=== PATIENT | female | born 1995 ===

== ENCOUNTER 2016-11-27 23:57 | Emergency (ER) | payer SELFPAY | END 2016-11-28 02:00 | disposition home or self-care (01) | LOC: H.EROB2 23:57 | DX: O47.03 False labor before 37 completed weeks of gestation, third trimester (principal); Z3A.29 29 weeks gestation of pregnancy ==

== ENCOUNTER 2017-02-08 03:28 | Emergency (ER) | payer SELFPAY ==
--- NOTE | 2017-02-08 10:38 | OBHP ---
Datetime: 02/08/2017 04:16 IP Adm Impression: Term, intrauterine IP Admit Plan: Observation/Evaluation Admit Comment, IP Provider: 21 y/o @ 40.1 weeks IUP presents w/ decreaed movement. The p atient reports that the fetus was not as active from 01:45-03:00. The patient reports tension headac he and mild nausea but no vomiting. The patient report taking PNVs and denies VB, LOF, CTXs, dysuria , and fevers. Clinic: [facility] PMH: none PSH: appendectomy 2011 OBHx: x1 2014 SOC: denies smoking, alcohol, and drugs ABO-Rh: O+ antibody: neg GBS: neg HIV: neg RPR: neg HBsAg: neg rubella: immune GC/C: neg PPD: neg TDAP: 01/16/2017 O: CV: RRR Resp: CTA bl Pelvic: 2 cm, 50%, -3, intact membranes A: 21 y/o @ 40.1 weeks IUP presents w/ decreased movement P: observe and evaluate continuous monitoring PO hydration re-evaluate in 2 hours Murtaza Norris MD [employer]munition [employer] I Laborer OBH ADDENDUM @ 10:00 Pt states she feels back pain rated as 10/10. She states prior preg was assoc with rapid labor. S he had SROM with subsequent labor pain in abd and back. o: repeat exam i: latent phase labor p: labor precautions kick counts Pelvic Type - PN: Adequate Extremities - PN: Normal Abdomen - PN: Normal Back - PN: Not Done Breast - PN: Not Done Lungs - PN: Normal Heart - PN: Normal Thyroid - PN: Not Done Neurologic - PN: Normal HEENT - PN: Normal General - PN: Normal FHR - Baseline A Provider: 136 Membranes, Provider: Intact Comments, ACOG Physical Exam: 2cm, 50%, -3, intact membranes IP Hx Assessment: The History has been Reviewed and is Current EGA AdmitDate IP: 40.1 Vital Signs Provider: Reviewed; Within Normal Limits IP Chief Complaint: Decreased movement NICHD Variability Prov Fetus A: Moderate 6-25bpm NICHD Accel Fetus A IP Provider: 15X15 FHR Category Provider Fetus A: Category I NICHD Decel Fetus A IP Provider: None Dilatation, Provider: 2 Effacement, Provider: 50 Station, Provider: -3 Genitourinary Exam: Normal DTRs - PN: Not Done
== END 2017-02-08 10:15 | disposition home or self-care (01) ==
LOC: H.EROB2 03:28
DX: O47.1 False labor at or after 37 completed weeks of gestation (principal); Z3A.40 40 weeks gestation of pregnancy; O48.0 Post-term pregnancy

== ENCOUNTER 2017-02-13 19:23 | Inpatient (IN) | payer MEDICAID, SELFPAY ==
[2017-02-13 20:09] VITALS: BMI 28.0
[2017-02-13 20:55] LABS: BASO # 0.1 K/uL (0.0-0.2); BASO % 1.2 % (0.0-2.0); EOS # 0.2 K/uL (0.0-0.7); EOS % 2.5 % (0.0-4.0); HEMOGLOBIN 11.3 g/dL (12.0-16.0); LYMPH # 2.8 K/uL (1.0-4.3); LYMPH % 40.6 % (20.0-40.0); MEAN CELL VOLUME 79.1 fl (81.0-99.0); MEAN CORPUSCULAR HEMOGLOBIN 26.3 pg (27.0-31.0); MEAN CORPUSCULAR HGB CONC 33.2 g/dL (33.0-37.0); MEAN PLATELET VOLUME 10.2 fl (7.2-11.7); MONO # 0.9 K/uL (0.0-0.8); MONO % 13.1 % (0.0-10.0); NEUT # 2.9 K/uL (1.8-7.0); NEUT % 42.6 % (50.0-75.0); NRBC % 0.2 % (0.0-0.0); RBC 4.3 Mil/uL (3.80-5.20); RED CELL DISTRIBUTION WIDTH 15.1 % (11.5-14.5); WHITE BLOOD COUNT 6.8 K/uL (4.8-10.8)
[2017-02-13 21:24] VITALS: BP 108/70; PULSE 93; RESP 18; TEMP 98.2; O2SAT 99
[2017-02-13] MEDS: Lactated Ringer's 1,000 ML IV SCH ×2 (22:45→23:45)
[2017-02-14] MEDS: Lactated Ringer's 1,000 ML IV SCH ×3 (00:45→12:11)
[2017-02-14] MEDS ORDERED: Fentanyl/Bupivacaine HCl 250 ML EPI ONE ×2 (01:27→19:24)
--- NOTE | 2017-02-14 07:40 | OBADHP ---
Datetime: 02/14/2017 05:40 FHR - Baseline A Provider: 141 Membranes, Provider: Intact Contraction Comments Provider: Q2-3M Vital Signs Provider: Reviewed NICHD Variability Prov Fetus A: Moderate 6-25bpm FHR Category Provider Fetus A: Category I NICHD Decel Fetus A IP Provider: None Dilatation, Provider: 3-4 Effacement, Provider: 80 Station, Provider: -2 Datetime: 02/13/2017 20:23 Admit Comment, IP Provider: 21 y/o @ 40.1 weeks IUP presents for scheduled induction of labor d ue to post dates. The patient reports mild tension headache and mild nausea but no vomiting. The p atient report taking PNVs and denies VB, LOF, CTXs, dysuria, and fevers. Clinic: [facility] PMH: none PSH: appendectomy 2011 OBHx: x1 2014 SOC: denies smoking, alcohol, and drugs ABO-Rh: O+ antibody: neg GBS: neg HIV: neg RPR: neg HBsAg: neg rubella: immune GC/C: neg PPD: neg TDAP: 01/16/2017 O: CV: RRR Resp: CTA bl Pelvic: 1 cm, 50%, -3 A: 21 y/o @ 40.6 IUP presnts for IOL due to post-dates P: Admit to unit initiate labor protocol initiate induction protocol continuous monitoring IV LR bolus IV LR @ 125 mL/hr CBC w/ diff ordered type and screen ordered cervidil ordered anesthesia consult for epidural ordered anticipate vaginal delivery Murtaza Norris MD Computer Architect Addendum: I saw and examined patient presentation. Agreed with above plan. Admit patient for postdates induc tion of labor. Maternal well-being and well-being reassuring at this time. [place] Pelvic Type - PN: Adequate Extremities - PN: Not Done Abdomen - PN: Normal Back - PN: Not Done Breast - PN: Normal Lungs - PN: Normal Heart - PN: Normal Thyroid - PN: Not Done Neurologic - PN: Normal HEENT - PN: Normal General - PN: Normal IP Hx Assessment: The History has been Reviewed and is Current IP Chief Complaint: Scheduled induction of labor NICHD Accel Fetus A IP Provider: 15X15 Genitourinary Exam: Normal DTRs - PN: Not Done EGA AdmitDate IP: 40.6 IP Adm Impression: Term, intrauterine IP Admit Plan: Admit to unit; Initiate labor protocol; Initiate labor induction protocol Datetime: 02/08/2017 04:16 Comments, ACOG Physical Exam: 2cm, 50%, -3, intact membranes
[2017-02-14] MEDS ORDERED: Oxytocin 30 units/LR 500ML 30 U/500 ML BAG IV ONE ×2 (09:31→21:49)
[2017-02-14] MEDS ORDERED: Lidocaine 1% Inj (20ml) ONE (21:30)
[2017-02-14] MEDS ORDERED: Benzocaine/Menthol SPRAY TOP PRN ×2 (22:11→23:37)
--- NOTE | 2017-02-14 22:25 | OBDS ---
DELIVERY PERSONNEL Delivery Doctor: Mony Rankin MD Network Systems Engineer: Areli Burgos RN Resident: Dr. Ana Lilia Garvey MATERNAL INFORMATION Delivery Anesthesia: Epidural Medications in Delivery: Oxytocin 30 units in 500 mLl Estimated Blood Loss (ml): 200 Placenta Cultured: No Maternal Complications: None Provider Comments: Pt progressed to complete and pushed to deliver a viable male infant at 21:44. Ap gars 9 and 9. Wt 9#8, 4315gms. Mouth and nares bulb-suctioned at perineum. Shoulders delivered fol lowed by the rest of the body. Cord clamped and cut. placed on mother's abdomen. Cord blood collected. Placenta delivered spontaneously intact w/ 3vc at 21:49. Small 1st degree tear repaired w/ 3-0 vicryl rapide. Left hemostatic periurethral abrasion noted. Baby delivered by Chio weiss, PGY-2. LABOR SUMMARY EDC: 02/07/2017 00:00 No. Babies in Womb: 1 LABOR INFORMATION Cervical Ripening Agents: Cervidil (Annotations: Cervidil 10mg inserted intravaginally by Dr. Gomez te Resident ) Group B Beta Strep: Negative MEMBRANES Membranes Rupture Method: Artificial Rupture of Membranes: 02/14/2017 17:30 Amniotic Fluid Color: Light Meconium (Annotations: very light mec) Amniotic Fluid Amount: Scant Amniotic Fluid Odor: Normal PRESENTATION/POSITION BABY A Presentation: Cephalic
[2017-02-15 07:30] LABS: MEAN CELL VOLUME 78.9 fl (81.0-99.0); MEAN CORPUSCULAR HEMOGLOBIN 25.8 pg (27.0-31.0); MEAN CORPUSCULAR HGB CONC 32.7 g/dL (33.0-37.0); RBC 3.89 Mil/uL (3.80-5.20); RED CELL DISTRIBUTION WIDTH 15.4 % (11.5-14.5)
--- NOTE | 2017-02-15 09:29 | OBPPN ---
Datetime: 02/15/2017 05:43 PP Pain Prov: Within normal limits PP Nausea Prov: Denies PP Flatus Prov: Yes PP BM Prov: No PP Breasts Prov: Normal PP Heart Prov: Normal PP Lungs Prov: Normal PP Abdomen/Uterus Prov: Normal PP Lochia Prov: Normal PP Vulva/Perineum Prov: Not Done PP CVA Tenderness Prov: Not Done PP Extremities Prov: Normal PP C/S Incision Prov: Not Applicable PP Progress Prov: Normal PP Impression Prov: Normal progression PP Plan Prov: Continue present management PP Progress Note Prov: 21 y/o now seen and examined at bedside. Patient delivered overnight. Patient reports mild pelvic pain controlled w/ pain meds. OOB/Ambulating w/o dizziness. Breast/donya le feeding w/o difficulty. Tolerating PO diet well. Lochia is less than menses in volume. Voiding freely w/ no blood noted. Reports no bowel movement. Denies fevers, chills, n/v/d, CP/SOB, lighthea dedness and calf pain. PE: GEN: A_O, resting comfortably in bed, NAD Lung: CTA B/L, no wheezing, rhonchi, or rales CVS: S1, S2 wnl, RRR Abd: +BS, firm fundus below umbilicus. EXT: no edema, negative Eron's, calves non-tender Assessment: 21 y/o now s/p on 02/14/2017 @ 21:44 tolerating pain w/ medication, tolerati ng oral intake, adequate urine output, doing well on PPD1. Plan: Percocet 5/325 mg 1-2 tabs PO Q6h prn for mod/severe pain. Ibuprofen 600 mg 1 tab Q6h PO pr n for mild pain. Encourage breast feeding and ambulation. Murtaza Norris M.D. System Development Manager PGY-1 OBH ADDENDUM PT seen _ examined by me. Agree with above assessment _ plan. IP PP Procedures: None Vital Signs Provider PP: Reviewed; Within Normal Limits Vital Signs Provider Details PP: hgb 10
--- NOTE | 2017-02-16 09:12 | OBPPN ---
Datetime: 02/16/2017 08:08 PP Pain Prov: Within normal limits PP Nausea Prov: Denies PP Flatus Prov: Yes PP BM Prov: Yes PP Heart Prov: Normal PP Lungs Prov: Normal PP Lochia Prov: Normal PP C/S Incision Prov: Not Applicable PP Impression Prov: Normal progression PP Plan Prov: Continue present management PP Progress Note Prov: PPD2 S:Patient feels well, tolerating regular diet. Pain is minimal and is controlled. Pt had BM. Lochia less than menses. O:as above A/P: PPD2 s/p -Pain control -encouraged ambulation -stable for discharge home Jared Vazquez PGY1 OB Hospitalist Addendum: PPD 2 s/p , doing well Discharge home today (ES) Vital Signs Provider PP: Reviewed
== END 2017-02-16 14:25 | disposition home or self-care (01) | DRG 373 ==
LOC: H.EROB2 19:23 → H.L&D 20:11 → H.OB/GYN 02-14 23:45
PROVIDERS: ADMIT Obstetrics & Gynecology; ATTEND Obstetrics & Gynecology
PROC: 10E0XZZ Delivery of Products of Conception, External Approach (ICD-10-PCS; principal; 2017-02-13)
PROC: 0HQ9XZZ Repair Perineum Skin, External Approach (ICD-10-PCS; 2017-02-13)
PROC: 4A1HXCZ Monitoring of Products of Conception, Cardiac Rate, External Approach (ICD-10-PCS; 2017-02-13)
DX: O48.0 Post-term pregnancy (principal); O99.354 Diseases of the nervous system complicating childbirth; Z37.0 Single live birth; G44.209 Tension-type headache, unspecified, not intractable; O70.0 First degree perineal laceration during delivery; Z3A.40 40 weeks gestation of pregnancy

== ENCOUNTER 2017-04-22 23:55 | Emergency (ER) | payer SELFPAY ==
[2017-04-22 23:55] VITALS: BMI 28.0
[2017-04-23 00:07] VITALS: PULSE 81; RESP 18; TEMP 98.2; O2SAT 99
--- NOTE | 2017-04-23 01:11 | ED PDOC ---
HPI: General Adult Time Seen by Provider: 04/23/17 00:59 Chief Complaint (Nursing): Headache Chief Complaint (Provider): left ear pain, headache History Per: Patient History/Exam Limitations: no limitations Onset/Duration Of Symptoms: Hrs (1) Current Symptoms Are (Timing): Still Present Additional History Per: Patient Additional Complaint(s): 21 y/o female presents with left ear pain x 1 hour. Associated generalized headache. Denies fever, drainage from ear, cough, congestion, nausea/vomiting. No medication taken for pain relief thus far. Past Medical History Reviewed: Historical Data, Nursing Documentation, Vital Signs Vital Signs: Last Vital Signs Temp 98.2 F 04/23/17 00:05 Pulse 81 04/23/17 00:05 Resp 18 04/23/17 00:05 BP 126/81 04/23/17 00:05 Pulse Ox 99 04/23/17 01:12 - Medical History PMH: No Chronic Diseases - Surgical History Surgical History: No Surg Hx - Family History Family History: States: No Known Family Hx - Living Arrangements Living Arrangements: With Family - Home Medications Home Medications: Ambulatory Orders Medication Instructions Recorded Multivit/Folic Acid/I 1 tab PO DAILY 02/13/17 [ Plus] Amoxicillin [Amoxil 500 mg Cap] 500 mg PO BID #13 cap 04/23/17 Ibuprofen [Motrin Tab] 1 tab PO Q6 PRN #20 tab 04/23/17 - Allergies Allergies/Adverse Reactions: Allergies Allergy/AdvReac Type Severity Reaction Status Date / Time No Known Allergies Allergy Verified 02/13/17 20:09 Review of Systems ROS Statement: Except As Marked, All Systems Reviewed And Found Negative ENT: Positive for: Ear Pain Neurological: Positive for: Headache Physical Exam - Reviewed Nursing Documentation Reviewed: Yes Vital Signs Reviewed: Yes - Physical Exam Appears: Positive for: Well, Non-toxic, No Acute Distress Head Exam: Positive for: ATRAUMATIC, NORMAL INSPECTION, NORMOCEPHALIC Skin: Positive for: Normal Color ENT: Positive for: TM Is/Are (Left TM bulging, slightly erythematous. Right TM partially obscured by cerumen. EACs clear b/l. No mastoid swelling/erythema/ tenderness b/l) Cardiovascular/Chest: Positive for: Regular Rate, Rhythm Respiratory: Positive for: Normal Breath Sounds Neurologic/Psych: Positive for: Alert, Oriented - ECG O2 Sat by Pulse Oximetry: 99 - Progress ED Course And Treament: Ibuprofen PO, Amoxicillin PO Patient educated on findings, discharged with rx ibuprofen, amoxicillin. Advised follow up PMD 2-3 days. Return to ED for worsening/concerning symptoms. Disposition - Clinical Impression Clinical Impression: Otitis media - Patient ED Disposition Is Patient to be Admitted: No Counseled Patient/Family Regarding: Diagnosis, Need For Followup, Rx Given - Disposition Referrals: [facility] [Outside] Disposition: Routine/Home Disposition Time: 01:11 Condition: IMPROVED Prescriptions: Amoxicillin [Amoxil 500 mg Cap] 500 mg PO BID #13 cap Ibuprofen [Motrin Tab] 1 tab PO Q6 PRN #20 tab PRN Reason: Pain, Moderate (4-7) Instructions: Otitis Media (ED) Print Language: CENTRAL AFRICAN
[2017-04-23 02:18] VITALS: BP 122/78
== END 2017-04-23 02:20 | disposition home or self-care (01) ==
LOC: H.ER 23:55
DX: H66.90 Otitis media, unspecified, unspecified ear (principal)

== ENCOUNTER 2017-10-08 15:29 | Emergency (ER) | payer OTHER, SELFPAY ==
[2017-10-08 15:29] VITALS: BMI 28.0
[2017-10-08] MEDS ORDERED: guaiFENesin 200 mg/10 ml Syrup UD PO STA (17:29)
[2017-10-08] MEDS ORDERED: guaiFENesin 100 mg/5 ml Syrup UD ONE (18:08)
--- NOTE | 2017-10-08 18:30 | ED PDOC ---
HPI: General Adult Time Seen by Provider: 10/08/17 16:48 Chief Complaint (Nursing): Flu-like Symptoms Chief Complaint (Provider): Flu-like Symptoms History Per: Patient, Orientor (#[id number]) Onset/Duration Of Symptoms: Days (x 3) Have you had recent travel within the past 21 days to any of the following countries: [place], [place], [place] or [place]?: No Current Symptoms Are (Timing): Still Present Additional Complaint(s): Patient is a 22 year old female who presents to the emergency department complaining of cough, body aches, and fever for the past 3 days. Unknown tmax. ( +) sick contact (son tested positive for flu). Patient reports she took Motrin at 14:00 today. Denies diarrhea, rash, urinary symptoms, travel, abdominal pain , vomiting, nausea, headache, stiff neck, or chest pain. LMP 16 months ago ( gave 7 months ago) is currently breast feeding. PMD: None Past Medical History Reviewed: Historical Data, Nursing Documentation, Vital Signs Vital Signs: Last Vital Signs Temp 98.6 F 10/08/17 20:25 Pulse 97 H 10/08/17 20:25 Resp 15 10/08/17 20:25 BP 114/67 10/08/17 20:25 Pulse Ox 100 10/08/17 20:25 - Medical History PMH: No Chronic Diseases - Surgical History Surgical History: Appendectomy - Family History Family History: States: Unknown Family Hx - Living Arrangements Living Arrangements: With Family - Social History Current smoker - smoking cessation education provided: No Alcohol: None Drugs: Denies - Home Medications Home Medications: Ambulatory Orders Medication Instructions Recorded Multivit/Folic Acid/I 1 tab PO DAILY 02/13/17 [ Plus] Amoxicillin [Amoxil 500 mg Cap] 500 mg PO BID #13 cap 04/23/17 Ibuprofen [Motrin Tab] 1 tab PO Q6 PRN #20 tab 04/23/17 Famotidine [Pepcid] 20 mg PO DAILY #20 tab 06/27/17 Acetaminophen [Acetaminophen 8 650 mg PO Q8 PRN #21 tablet.er 10/08/17 Hour] Promethazine DM [Phenergan DM 5 ml PO Q6 PRN #200 ml 10/08/17 Syrup] - Allergies Allergies/Adverse Reactions: Allergies Allergy/AdvReac Type Severity Reaction Status Date / Time No Known Allergies Allergy Verified 10/08/17 16:16 Review of Systems ROS Statement: Except As Marked, All Systems Reviewed And Found Negative Constitutional: Positive for: Fever, Other (Body aches) Cardiovascular: Negative for: Chest Pain Respiratory: Positive for: Cough. Negative for: Shortness of Breath Gastrointestinal: Negative for: Nausea, Vomiting, Diarrhea Genitourinary Female: Negative for: Dysuria, Hematuria Musculoskeletal: Negative for: Neck Pain Skin: Negative for: Rash Neurological: Negative for: Headache Physical Exam - Reviewed Nursing Documentation Reviewed: Yes Vital Signs Reviewed: Yes - Physical Exam Appears: Positive for: Well, Non-toxic, No Acute Distress Head Exam: Positive for: ATRAUMATIC, NORMOCEPHALIC Skin: Positive for: Normal Color, Warm, Dry. Negative for: Diaphoresis, Rash Eye Exam: Positive for: Normal appearance, EOMI, PERRL. Negative for: Conjunctival injection ENT: Positive for: Pharynx Is (clear, uvula midline), TM Is/Are ((-) erythema (- ) bulging). Negative for: Pharyngeal Erythema Neck: Positive for: Painless ROM, Supple Cardiovascular/Chest: Positive for: Regular Rate, Rhythm Respiratory: Positive for: Normal Breath Sounds. Negative for: Decreased Breath Sounds, Accessory Muscle Use, Respiratory Distress Gastrointestinal/Abdominal: Positive for: Soft. Negative for: Tenderness, Mass , Distended, Guarding Extremity: Positive for: Normal ROM. Negative for: Deformity Neurologic/Psych: Positive for: Alert, Mood/Affect (appropriate for age) - ECG O2 Sat by Pulse Oximetry: 99 (RA) Pulse Ox Interpretation: Normal Medical Decision Making Medical Decision Making: Time: 17:29 Plan: - Robitussin 200 mg PO STAT - Tylenol 325mg tab Patient advised she was outside the treatment window for Tamiflu. On re-evaluation, patient reports improvement of symptoms, denies any chest, neck, or abdomen pain. On exam, patient remains AAOx3, in no acute distress. Lungs clear to auscultation, cardiac RRR, abdomen soft, non-tender, repeat neuro exam shows no focal findings. Based on history, exam and diagnostic results, plan will be for outpatient follow up. Patient instructed to follow-up with pmd / the clinic in 1-2 days without fail. Advised to take medication as prescribed. Return to the emergency room at any time for any new or worsening symptoms. Patient states he/she fully agrees with and understands discharge instructions. States that he/she agrees with the plan and disposition. Verbalized and repeated discharge instructions and plan. I have given the patient opportunity to ask any additional questions. Scribe Attestation: Documented by Lukasz Hwang, acting as a scribe for Beatriz Hurst PA-C Provider Scribe Attestation: All medical record entries made by the Scribe were at my direction and personally dictated by me. I have reviewed the chart and agree that the record accurately reflects my personal performance of the history, physical exam, medical decision making, and the department course for this patient. I have also personally directed, reviewed, and agree with the discharge instructions and disposition. Disposition - Clinical Impression Clinical Impression: Fever, Cough in adult patient, Influenza, Body aches - Patient ED Disposition Is Patient to be Admitted: No Counseled Patient/Family Regarding: Diagnosis, Need For Followup, Rx Given - Disposition Referrals: [facility] [Outside] Disposition: Routine/Home Disposition Time: 19:52 Condition: STABLE Prescriptions: Acetaminophen [Acetaminophen 8 Hour] 650 mg PO Q8 PRN #21 tablet.er PRN Reason: fever, pain Promethazine DM [Phenergan DM Syrup] 5 ml PO Q6 PRN #200 ml PRN Reason: Cough Instructions: Flu, Cough in Adults, Fever, Adult (DC) Forms: [employer] (Djiboutian) Print Language: CHILEAN - POA Present On Arrival: None
[2017-10-08 20:26] VITALS: BP 114/67; PULSE 97; RESP 15; TEMP 98.6
[2017-10-08 20:45] VITALS: O2SAT 99
== END 2017-10-08 20:27 | disposition home or self-care (01) ==
LOC: H.ER 15:29
DX: J11.1 Influenza due to unidentified influenza virus with other respiratory manifestations (principal)

== ENCOUNTER 2017-12-25 13:56 | Emergency (ER) | payer OTHER ==
[2017-12-25 13:57] VITALS: BMI 28.0
[2017-12-25] MEDS ORDERED: Sodium Chloride 0.9% 1,000 ML IV STA (14:42)
--- NOTE | 2017-12-25 14:51 | ED PDOC ---
HPI: Abdomen Time Seen by Provider: 12/25/17 14:00 Chief Complaint (Nursing): Abdominal Pain Chief Complaint (Provider): Lower abdomen pain History Per: Patient History/Exam Limitations: no limitations Onset/Duration Of Symptoms: Days (3) Outside of [place] travel?: No Current Symptoms Are (Timing): Still Present Location Of Pain/Discomfort: RLQ, Suprapubic Quality Of Discomfort: "Pain" Associated Symptoms: Nausea, Urinary Symptoms. denies: Fever, Chills, Vomiting , Back Pain Additional History Per: Patient Additional Complaint(s): 22yo female, no past medical history, presents to ED wit complaints of right lower abdominal pain for the past 3 days. She reports associated nausea and states she feels burning upon urination. She denies any fever, chills, vomiting , diarrhea, lower back pain, or hematuria. She states her LMP was on 11/27/17. Patient has no other medical complaints. Abnormal Vaginal Bleeding: No Last Menstral Period: 11/27/17 Past Medical History Reviewed: Historical Data, Nursing Documentation, Vital Signs Vital Signs: Last Vital Signs Temp 97.0 F L 12/25/17 13:59 Pulse 88 12/25/17 13:59 Resp 16 12/25/17 13:59 BP 117/82 12/25/17 13:59 Pulse Ox 97 12/25/17 17:50 - Medical History PMH: No Chronic Diseases - Surgical History Surgical History: Appendectomy - Family History Family History: States: Unknown Family Hx - Social History Current smoker - smoking cessation education provided: No Alcohol: None Drugs: Denies - Home Medications Home Medications: Ambulatory Orders Medication Instructions Recorded Multivit/Folic Acid/I 1 tab PO DAILY 02/13/17 [ Plus] Amoxicillin [Amoxil 500 mg Cap] 500 mg PO BID #13 cap 04/23/17 Ibuprofen [Motrin Tab] 1 tab PO Q6 PRN #20 tab 04/23/17 Famotidine [Pepcid] 20 mg PO DAILY #20 tab 06/27/17 Acetaminophen [Acetaminophen 8 650 mg PO Q8 PRN #21 tablet.er 10/08/17 Hour] Promethazine DM [Phenergan DM 5 ml PO Q6 PRN #200 ml 10/08/17 Syrup] Nitrofurantoin Macrocrystals 100 mg PO BID #14 cap 12/25/17 [Macrobid] - Allergies Allergies/Adverse Reactions: Allergies Allergy/AdvReac Type Severity Reaction Status Date / Time No Known Allergies Allergy Verified 12/25/17 13:59 Review of Systems ROS Statement: Except As Marked, All Systems Reviewed And Found Negative Constitutional: Negative for: Fever, Chills Gastrointestinal: Positive for: Nausea, Abdominal Pain. Negative for: Vomiting , Diarrhea Genitourinary Female: Positive for: Dysuria. Negative for: Hematuria, Vaginal Discharge, Vaginal Bleeding Musculoskeletal: Negative for: Back Pain Physical Exam - Reviewed Nursing Documentation Reviewed: Yes Vital Signs Reviewed: Yes - Physical Exam Appears: Positive for: Non-toxic, No Acute Distress Head Exam: Positive for: ATRAUMATIC, NORMAL INSPECTION, NORMOCEPHALIC Skin: Positive for: Normal Color, Warm Eye Exam: Positive for: Normal appearance Neck: Positive for: Normal, Supple Cardiovascular/Chest: Positive for: Regular Rate, Rhythm Respiratory: Positive for: Normal Breath Sounds Gastrointestinal/Abdominal: Positive for: Soft, Tenderness (mild right lower quadrant/pelvic tenderness) Back: Positive for: Normal Inspection. Negative for: L CVA Tenderness, R CVA Tenderness Extremity: Positive for: Normal ROM. Negative for: Deformity Neurologic/Psych: Positive for: Alert, Oriented - Laboratory Results Result Diagrams: 12/25/17 15:22 12/25/17 15:22 - ECG O2 Sat by Pulse Oximetry: 97 (RA) Pulse Ox Interpretation: Normal Medical Decision Making Medical Decision Making: Impression: Abdominal pain, r/o ovarian torsion, UTI Plan: -- US Pelvis/Transvaginal -- Urinalysis -- Labs -- Toradol 30mg IV -- IV Fluids -- Zofran 4mg PO Time: 1700 Labs and UA reviewed, indicates a UTI; patient informed of findings. US Pelvis/Transvaginal FINDINGS: UTERUS: Measures 4.3 x 4.9 x 8.5 cm. Normal in size and appearance. No fibroid or other mass lesion seen. ENDOMETRIUM: Measures 4.1 mm in diameter. 1.8 mm echogenic focus within the endometrial canal of uncertain etiology/ doubtful clinical significance. CERVIX: No cervical abnormality identified. RIGHT OVARY: Measures 2.4 x 3.4 x 3.4 cm. No solid mass. Normal flow. Multiple subcentimeter follicles. LEFT OVARY: Measures 2.4 x 3.6 x 3.3 cm. No solid mass. Normal flow. FREE FLUID: No significant free fluid noted. OTHER FINDINGS: None. IMPRESSION: No significant or acute findings to account for/ related to the clinical presentation. Additional benign and/or incidental findings described above. Patient is stable for discharge home; she is aware of US results and will be prescribed Macrobid and instructed to follow up with her PCP in 2-3 days. Patient is agreeable with plan. Scribe Attestation: Documented by Christina Gonsalves, acting as a scribe for Joshua Rahman MD Provider Scribe Attestation: All medical record entries made by the Scribe were at my direction and personally dictated by me. I have reviewed the chart and agree that the record accurately reflects my personal performance of the history, physical exam, medical decision making, and the department course for this patient. I have also personally directed, reviewed, and agree with the discharge instructions and disposition. Disposition - Clinical Impression Clinical Impression: UTI (urinary tract infection) - Patient ED Disposition Is Patient to be Admitted: No Counseled Patient/Family Regarding: Studies Performed, Diagnosis, Need For Followup, Rx Given - Disposition Referrals: [facility] [Outside] [facility] [Outside] [facility] [Outside] Disposition: Routine/Home Disposition Time: 16:35 Condition: IMPROVED Additional Instructions: follow up with your primary doctor in 1-2 days return to the ED with any worsening or concerning symptoms Prescriptions: Nitrofurantoin Macrocrystals [Macrobid] 100 mg PO BID #14 cap Instructions: Urinary Tract Infection, Adult (DC) Forms: [employer] (Lao) Print Language: [place]IZ[place]
[2017-12-25 15:30] LABS: BASO % 0.5 % (0.0-2.0); EOS # 0.2 K/uL (0.0-0.7); EOS % 3.9 % (0.0-4.0); HEMOGLOBIN 13.7 g/dL (12.0-16.0); LYMPH # 2.8 K/uL (1.0-4.3); LYMPH % 48.2 % (20.0-40.0); MEAN CORPUSCULAR HEMOGLOBIN 30.1 pg (27.0-31.0); MEAN CORPUSCULAR HGB CONC 34.6 g/dL (33.0-37.0); MEAN PLATELET VOLUME 8.3 fl (7.2-11.7); MONO # 0.5 K/uL (0.0-0.8); NEUT # 2.2 K/uL (1.8-7.0); NEUT % 38.4 % (50.0-75.0); RBC 4.55 Mil/uL (3.80-5.20); RED CELL DISTRIBUTION WIDTH 12.5 % (11.5-14.5); WHITE BLOOD COUNT 5.7 K/uL (4.8-10.8)
[2017-12-25 15:43] LABS: ALB/GLOB RATIO 1.4 (1.0-2.1); ALBUMIN 4.6 g/dL (3.5-5.0); ALT/SGPT 39 U/L (9-52); AST/SGOT 24 U/L (14-36); BLOOD UREA NITROGEN 13 mg/dl (7-17); CALCIUM 9.7 mg/dL (8.4-10.2); GFR AFRICAN-AMERICAN > 60; GFR NON-AFRICAN AMERICAN > 60
[2017-12-25 16:07] LABS: SQUAMOUS EPITHIAL 20 /hpf (0-5); URINE BACTERIA RARE (<OCC); URINE BILIRUBIN NEGATIVE (NEGATIVE); URINE BLOOD SMALL (NEGATIVE); URINE CLARITY CLOUDY (Clear); URINE COLOR YELLOW (YELLOW); URINE GLUCOSE (UA) NEG (Normal); URINE LEUKOCYTE ESTERASE MOD Leu/uL (Negative); URINE PROTEIN NEGATIVE (NEGATIVE); URINE UROBILINOGEN 0.2-1.0 mg/dL (0.2-1.0)
--- NOTE | 2017-12-25 16:31 | US ---
HISTORY: Nausea, right-sided pelvic pain. Menstrual status: LMP 12/22/2017. COMPARISON: None available. TECHNIQUE: Transabdominal, transvaginal. Real -time technique with 2D, duplex and color Doppler. FINDINGS: UTERUS: Measures 4.3 x 4.9 x 8.5 cm. Normal in size and appearance. No fibroid or other mass lesion seen. ENDOMETRIUM: Measures 4.1 mm in diameter. 1.8 mm echogenic focus within the endometrial canal of uncertain etiology/ doubtful clinical significance. CERVIX: No cervical abnormality identified. RIGHT OVARY: Measures 2.4 x 3.4 x 3.4 cm. No solid mass. Normal flow. Multiple subcentimeter follicles. LEFT OVARY: Measures 2.4 x 3.6 x 3.3 cm. No solid mass. Normal flow. FREE FLUID: No significant free fluid noted. OTHER FINDINGS: None. IMPRESSION: No significant or acute findings to account for/ related to the clinical presentation. Additional benign and/or incidental findings described above.
[2017-12-25 19:35] VITALS: BP 105/69; PULSE 88; RESP 18; TEMP 98.4; O2SAT 99
== END 2017-12-25 19:37 | disposition home or self-care (01) ==
LOC: H.ER 13:56
DX: N39.0 Urinary tract infection, site not specified (principal)
CPT/HCPCS: 76830; 76856; 80053; 81003; 81025; 85025; 87086; 99283; J1885; J7040

== ENCOUNTER 2018-01-27 23:52 | Emergency (ER) | payer OTHER ==
[2018-01-27 23:52] VITALS: BMI 28.0
[2018-01-27 23:56] VITALS: TEMP 97.9
--- NOTE | 2018-01-28 00:21 | ED PDOC ---
HPI: Back Time Seen by Provider: 01/28/18 00:08 Chief Complaint (Nursing): Back Pain Chief Complaint (Provider): back pain History Per: Patient History/Exam Limitations: no limitations Onset/Duration Of Symptoms: Mins (20) Current Symptoms Are (Timing): Still Present Quality Of Discomfort: "Pain" Exacerbating Factor(s): Turning, Movement Additional Complaint(s): 22 y/o female brought in by EMS for acute onset low back pain x 20 minutes. Patient states she was bent over picking up her child when pain started. Pain worse with movement. Denies numbness/weakness lower extremities, bowel/bladder incontinence. Past Medical History Reviewed: Historical Data, Nursing Documentation, Vital Signs Vital Signs: Last Vital Signs Temp 97.9 F 01/27/18 23:53 Pulse 89 01/27/18 23:53 Resp 18 01/27/18 23:53 BP 122/58 L 01/27/18 23:53 Pulse Ox 98 01/27/18 23:53 - Medical History PMH: No Chronic Diseases - Surgical History Surgical History: Appendectomy - Family History Family History: States: Unknown Family Hx - Home Medications Home Medications: Ambulatory Orders Medication Instructions Recorded Multivit/Folic Acid/I 1 tab PO DAILY 02/13/17 [ Plus] Amoxicillin [Amoxil 500 mg Cap] 500 mg PO BID #13 cap 04/23/17 Ibuprofen [Motrin Tab] 1 tab PO Q6 PRN #20 tab 04/23/17 Famotidine [Pepcid] 20 mg PO DAILY #20 tab 06/27/17 Acetaminophen [Acetaminophen 8 650 mg PO Q8 PRN #21 tablet.er 10/08/17 Hour] Promethazine DM [Phenergan DM 5 ml PO Q6 PRN #200 ml 10/08/17 Syrup] Nitrofurantoin Macrocrystals 100 mg PO BID #14 cap 12/25/17 [Macrobid] Cyclobenzaprine [Cyclobenzaprine 10 mg PO BID PRN #14 tab 01/28/18 HCl] Naproxen [Naprosyn] 500 mg PO Q12 PRN #20 tablet 01/28/18 - Allergies Allergies/Adverse Reactions: Allergies Allergy/AdvReac Type Severity Reaction Status Date / Time No Known Allergies Allergy Verified 12/25/17 13:59 Review of Systems ROS Statement: Except As Marked, All Systems Reviewed And Found Negative Musculoskeletal: Positive for: Back Pain Physical Exam - Reviewed Nursing Documentation Reviewed: Yes Vital Signs Reviewed: Yes - Physical Exam Appears: Positive for: Well, Non-toxic, No Acute Distress Head Exam: Positive for: ATRAUMATIC, NORMAL INSPECTION, NORMOCEPHALIC Skin: Positive for: Normal Color Eye Exam: Positive for: Normal appearance ENT: Positive for: Normal ENT Inspection Cardiovascular/Chest: Positive for: Regular Rate, Rhythm Respiratory: Positive for: Normal Breath Sounds Gastrointestinal/Abdominal: Positive for: Normal Exam Back: Positive for: Vertebral Tenderness (mid lspine tenderness; no bony deformity), Decreased ROM (secondary to pain), Muscle Spasm (b/l lspine paravertebral tenderness). Negative for: L CVA Tenderness, R CVA Tenderness Extremity: Positive for: Normal ROM Neurologic/Psych: Positive for: Alert, Oriented. Negative for: Motor/Sensory Deficits - ECG O2 Sat by Pulse Oximetry: 98 - Other Rad xray lspine X-Ray: Viewed By Me X-Ray Interpretation: no acute findings - Progress ED Course And Treament: Toradol IM, flexeril PO, tramadol PO, xray On re-eval, patient states she is feeling better. Ambulating without difficulty Patient educated on findings, discharged with rx naproxen, flexeril ADvised follow up PMD 2-3 days. Return precautions given Disposition - Clinical Impression Clinical Impression: Back pain - Patient ED Disposition Is Patient to be Admitted: No Counseled Patient/Family Regarding: Studies Performed, Diagnosis, Need For Followup, Rx Given - Disposition Referrals: [facility] [Outside] Disposition: Routine/Home Disposition Time: 02:10 Condition: IMPROVED Prescriptions: Cyclobenzaprine [Cyclobenzaprine HCl] 10 mg PO BID PRN #14 tab PRN Reason: Muscle Spasm Naproxen [Naprosyn] 500 mg PO Q12 PRN #20 tablet PRN Reason: Pain, Moderate (4-7) Instructions: Low Back Pain in Adults Forms: [email or web address] (Malay) Print Language: SAMI
[2018-01-28 03:24] VITALS: BP 121/60; PULSE 82; RESP 17; O2SAT 96
--- NOTE | 2018-01-28 08:11 | RAD ---
PROCEDURE: Radiographs of the Lumbar Spine. HISTORY: low back pain COMPARISON: No prior. FINDINGS: BONES: Normal alignment. No listhesis. No fracture. DISC SPACES: Unremarkable. OTHER FINDINGS: None. IMPRESSION: Unremarkable radiographs of the lumbar spine.
== END 2018-01-28 02:36 | disposition home or self-care (01) ==
LOC: H.ER 23:52
DX: M54.9 Dorsalgia, unspecified (principal)
CPT/HCPCS: 72100; 81025; 96372; 99282; J1885

== ENCOUNTER 2018-10-24 00:17 | Emergency (ER) | payer OTHER ==
[2018-10-24 00:17] VITALS: BMI 28.0
[2018-10-24 00:52] VITALS: RESP 18; O2SAT 100
[2018-10-24] MEDS ORDERED: Sodium Chloride 0.9% 1,000 ML IV STA (01:34)
[2018-10-24 04:26] VITALS: BP 119/67; PULSE 86; TEMP 98.5
--- NOTE | 2018-10-24 21:11 | ED PDOC ---
HPI: Female Pain Time Seen by Provider: 10/24/18 01:17 Chief Complaint (Nursing): Abdominal Pain History Per: Patient Additional Complaint(s): Pt. states for the past 3 days she's had hematuria with dysuria without abdominal pain contrary to triage note. LMP: 10/02/2018. Denies back pain, pelvic pain, fever, chills, flank pain, incontinence. Past Medical History Reviewed: Historical Data, Nursing Documentation, Vital Signs Vital Signs: Last Vital Signs Temp 98.5 F 10/24/18 02:46 Pulse 86 10/24/18 02:46 Resp 18 10/24/18 02:46 BP 119/67 10/24/18 02:46 Pulse Ox 100 10/24/18 02:46 - Medical History PMH: HTN (Gestational) Denies: Chronic Kidney Disease - Surgical History Surgical History: Appendectomy - Family History Family History: States: No Known Family Hx - Home Medications Home Medications: Ambulatory Orders Medication Instructions Recorded Multivit/Folic Acid/I 1 tab PO DAILY 02/13/17 [ Plus] Amoxicillin [Amoxil 500 mg Cap] 500 mg PO BID #13 cap 04/23/17 Ibuprofen [Motrin Tab] 1 tab PO Q6 PRN #20 tab 04/23/17 Famotidine [Pepcid] 20 mg PO DAILY #20 tab 06/27/17 Acetaminophen [Acetaminophen 8 650 mg PO Q8 PRN #21 tablet.er 10/08/17 Hour] Promethazine DM [Phenergan DM 5 ml PO Q6 PRN #200 ml 10/08/17 Syrup] Nitrofurantoin Macrocrystals 100 mg PO BID #14 cap 12/25/17 [Macrobid] Cyclobenzaprine [Cyclobenzaprine 10 mg PO BID PRN #14 tab 01/28/18 HCl] Naproxen [Naprosyn] 500 mg PO Q12 PRN #20 tablet 01/28/18 - Allergies Allergies/Adverse Reactions: Allergies Allergy/AdvReac Type Severity Reaction Status Date / Time No Known Allergies Allergy Verified 10/24/18 00:46 Review of Systems ROS Statement: Except As Marked, All Systems Reviewed And Found Negative Genitourinary Female: Positive for: Dysuria, Hematuria Physical Exam - Physical Exam Appears: Positive for: Well, Non-toxic, No Acute Distress Skin: Positive for: Normal Color, Warm. Negative for: Rash Eye Exam: Positive for: Normal appearance Gastrointestinal/Abdominal: Positive for: Normal Exam, Soft. Negative for: Tenderness Back: Negative for: L CVA Tenderness, R CVA Tenderness Neurological/Psych: Positive for: Awake, Alert, Oriented (x3) - Laboratory Results Urine POC: Negative Urine dip results: Positive for: Blood (small). Negative for: Leukocyte Esterase, Nitrate, Ketones, Glucose, Bilirubin, Protein - ECG O2 Sat by Pulse Oximetry: 100 Medical Decision Making Medical Decision Making: Urine C&S sent. Informed that she will be contacted if she requires abx but is to return to ED immediately if symptoms worsen. Agrees with plan and care. B Disposition - Clinical Impression Clinical Impression: Hematuria - Patient ED Disposition Is Patient to be Admitted: No - Disposition Referrals: [facility] [Outside] Disposition: Routine/Home Disposition Time: 02:20 Condition: STABLE Additional Instructions: BERTHA BARAJAS, thank you for letting us take care of you today. Your provider was Dewayne Segovia MD and you were treated for ABD PAIN. The emergency medical care you received today was directed at your acute symptoms. If you were prescribed any medication, please fill it and take as directed. It may take several days for your symptoms to resolve. Return to the Emergency Department if your symptoms worsen, do not improve, or if you have any other problems. Please contact your doctor or call one of the physicians/clinics you have been referred to that are listed on the Patient Visit Information form that is included in your discharge packet. Bring any paperwork you were given at discharge with you along with any medications you are taking to your follow up visit. Our treatment cannot replace ongoing medical care by a primary care provider outside of the emergency department. Thank you for allowing the [facility] team to be part of your care today. If you had an X-Ray or CT scan: A Radiologist will review the ED reading if any change in treatment is needed we will contact you. If you had a blood, urine, or wound culture: It will take several days for the results, if any change in treatment is needed we will contact you. If you had an STI test: It will take 48 hours for the results. Please call after 1 week if you have not heard back. Instructions: Blood in the Urine (Hematuria), Adult (DC) Forms: [facility] (Argentine) Print Language: DIVEHI
== END 2018-10-24 02:46 | disposition home or self-care (01) ==
LOC: H.ER 00:17
DX: R31.9 Hematuria, unspecified (principal); I10 Essential (primary) hypertension

== ENCOUNTER 2018-11-13 14:31 | Emergency (ER) | payer OTHER ==
[2018-11-13 14:31] VITALS: BMI 28.0
[2018-11-13 15:00] VITALS: TEMP 98.7; O2SAT 99
--- NOTE | 2018-11-13 15:39 | ED PDOC ---
HPI: Abdomen Time Seen by Provider: 11/13/18 15:23 Chief Complaint (Nursing): Abdominal Pain History Per: Patient Onset/Duration Of Symptoms: Days (2) Current Symptoms Are (Timing): Intermittent Episodes Severity: Mild Location Of Pain/Discomfort: Epigastric Quality Of Discomfort: Sharp Associated Symptoms: denies: Nausea, Vomiting, Diarrhea Exacerbating Factors: None Alleviating Factors: None Additional Complaint(s): Sharp epigastric abd ominal mpain radiating to back x 2 days. Denies NVD. Denies urinary sxs. LMP Oct 01 Abnormal Vaginal Bleeding: No Past Medical History Vital Signs: Last Vital Signs Temp 98.7 F 11/13/18 14:57 Pulse 88 11/13/18 14:57 Resp 18 11/13/18 14:57 BP 113/75 11/13/18 14:57 Pulse Ox 99 11/13/18 14:57 - Medical History PMH: HTN (Gestational) Denies: Chronic Kidney Disease - Surgical History Surgical History: Appendectomy - Family History Family History: States: Unknown Family Hx - Home Medications Home Medications: Ambulatory Orders Medication Instructions Recorded Multivit/Folic Acid/I 1 tab PO DAILY 02/13/17 [ Plus] Amoxicillin [Amoxil 500 mg Cap] 500 mg PO BID #13 cap 04/23/17 Ibuprofen [Motrin Tab] 1 tab PO Q6 PRN #20 tab 04/23/17 Famotidine [Pepcid] 20 mg PO DAILY #20 tab 06/27/17 Acetaminophen [Acetaminophen 8 650 mg PO Q8 PRN #21 tablet.er 10/08/17 Hour] Promethazine DM [Phenergan DM 5 ml PO Q6 PRN #200 ml 10/08/17 Syrup] Nitrofurantoin Macrocrystals 100 mg PO BID #14 cap 12/25/17 [Macrobid] Cyclobenzaprine [Cyclobenzaprine 10 mg PO BID PRN #14 tab 01/28/18 HCl] Naproxen [Naprosyn] 500 mg PO Q12 PRN #20 tablet 01/28/18 - Allergies Allergies/Adverse Reactions: Allergies Allergy/AdvReac Type Severity Reaction Status Date / Time No Known Allergies Allergy Verified 10/24/18 00:46 Review of Systems ROS Statement: Except As Marked, All Systems Reviewed And Found Negative Gastrointestinal: Positive for: Abdominal Pain Genitourinary Female: Negative for: Vaginal Bleeding Physical Exam - Reviewed Nursing Documentation Reviewed: Yes Vital Signs Reviewed: Yes - Physical Exam Appears: Positive for: Non-toxic, No Acute Distress Head Exam: Positive for: ATRAUMATIC, NORMAL INSPECTION, NORMOCEPHALIC Skin: Positive for: Normal Color, Warm, DRY Eye Exam: Positive for: EOMI, Normal appearance, PERRL ENT: Positive for: Normal ENT Inspection Neck: Positive for: Normal, Painless ROM Cardiovascular/Chest: Positive for: Regular Rate, Rhythm Respiratory: Positive for: CNT, Normal Breath Sounds Gastrointestinal/Abdominal: Positive for: Normal Exam, Soft. Negative for: Tenderness Back: Positive for: Normal Inspection Extremity: Positive for: Normal ROM Neurological/Psych: Positive for: Awake, Alert, Normal Tone - Laboratory Results Result Diagrams: 11/13/18 15:58 11/13/18 15:58 - ECG O2 Sat by Pulse Oximetry: 99 Disposition - Clinical Impression Clinical Impression: Abdominal pain during , Early stage of - Patient ED Disposition Is Patient to be Admitted: No Counseled Patient/Family Regarding: Studies Performed, Diagnosis, Need For Followup - Disposition [facility] Disposition: Routine/Home Disposition Time: 18:53 Condition: FAIR Additional Instructions: Regressa a emergencia en 48 horas para repetir la prueba de sarah Instructions: Stomach Pain in Early Forms: [facility] (Kiswahili) Print Language: SENEGALESE
[2018-11-13 16:11] LABS: BASO % 0.6 % (0.0-2.0); EOS # 0.1 K/uL (0.0-0.7); EOS % 1.4 % (0.0-4.0); LYMPH # 2.4 K/uL (1.0-4.3); LYMPH % 32.2 % (20.0-40.0); MEAN CELL VOLUME 84.7 fl (81.0-99.0); MEAN CORPUSCULAR HGB CONC 34.3 g/dL (33.0-37.0); MEAN PLATELET VOLUME 8.2 fl (7.2-11.7); MONO # 0.5 K/uL (0.0-0.8); MONO % 6.6 % (0.0-10.0); NEUT # 4.4 K/uL (1.8-7.0); NEUT % 59.2 % (50.0-75.0); NRBC % 0.1 % (0.0-0.0); RBC 4.48 Mil/uL (3.80-5.20); RED CELL DISTRIBUTION WIDTH 13.9 % (11.5-14.5); WHITE BLOOD COUNT 7.4 K/uL (4.8-10.8)
[2018-11-13 16:16] LABS: ALB/GLOB RATIO 1.4 (1.0-2.1); ALBUMIN 4.6 g/dL (3.5-5.0); ALT/SGPT 25 U/L (9-52); AST/SGOT 19 U/L (14-36); BLOOD UREA NITROGEN 9 mg/dl (7-17); CALCIUM 9.7 mg/dL (8.4-10.2); GFR NON-AFRICAN AMERICAN > 60
--- NOTE | 2018-11-13 18:49 | US ---
Date of service: 11/13/2018 HISTORY: r/o ectopic LMP 10/01/2018. Beta HCG results: 6189 units. COMPARISON: None available. TECHNIQUE: Transvaginal only. Real -time technique with 2D, duplex and color Doppler FINDINGS: UTERUS: Measures 5 x 6.5 x 10.2 cm. Normal in size and appearance. No fibroid or other mass lesion seen. ENDOMETRIUM: Well-formed gestational sac or saclike structure mean diameter 7.1 mm. Below the threshold for calculation of a reliable gestational age CERVIX: Trace fluid in the cervical canal. Cervical length 3.36 cm. RIGHT OVARY: Measures 3.1 x 3.4 x 3.6 cm. Solid mass 1.7 x 2 x 2.3 cm. This focus is avascular likely represents hemorrhagic or debris laden cyst. Normal flow. LEFT OVARY: Measures 1.7 x 2.7 x 3.7 cm. No solid mass. Normal flow. Multiple subcentimeter follicles. FREE FLUID: No significant free fluid noted. OTHER FINDINGS: None. IMPRESSION: Gestational sac without yolk sac or pole identified. Measurement of 7.1 mm out of range. Below threshold for calculation of reliable gestational age. Complex cyst/mass right adnexa. This is avascular. This likely represents hemorrhagic or debris laden cyst.
[2018-11-13 19:00] VITALS: BP 110/68; PULSE 78; RESP 17
== END 2018-11-13 19:00 | disposition home or self-care (01) ==
LOC: H.ER 14:31
DX: O26.899 Other specified pregnancy related conditions, unspecified trimester (principal)